=== PATIENT | female | born 1970 ===

== ENCOUNTER 2024-04-24 13:08 | Outpatient (REF) | payer MEDICARE, SELFPAY ==
[2024-04-24 21:23] LABS: HGB 13.6 g/dL (11.2-15.7); MCH 30.5 pg (27.0-33.0); MCHC 33.2 % (32.0-36.0); MCV 92 fL (80-95); MPV 9.4 fL (8.0-11.0); Platelet Count 285 10^3/uL (130-400); RBC 4.46 10^6/uL (3.93-5.22); RDW-SD 43.7 fL; WBC 7.57 10^3/uL (4.4-10.8)
[2024-04-24 21:46] LABS: Iron 62 ug/dL (50-170); Total Iron Binding Capacity 339 ug/dL (250-450); Transferrin Sat 18 % (15-50)
[2024-04-24 22:28] LABS: ALT 53 U/L (14-59); Albumin 4.2 g/dL (3.4-5.0); Alkaline Phosphatase 98 U/L (46-116); Anion Gap 10.9 mmol/L (3-11); BUN 15 mg/dL (7-18); Bilirubin, Total 0.29 mg/dL (0.2-1.0); CO2 27.1 mmol/L (21.0-32.0); Chloride 103 mmol/L (98-107); Cholesterol 255 mg/dL (<200); Estimated GFR 66.95 (mL/min/1.73m2); Ferritin 63 ng/mL (8-252); Glucose 112 mg/dL (74-106); HDL Cholesterol 50 mg/dL (40-60); Potassium 4.2 mmol/L (3.5-5.1); Sodium 141 mmol/L (136-145); TSH (W/Ref FT4) 5.21 uIU/mL (0.36-3.74); Total Protein 7.1 g/dL (6.4-8.2); Triglyceride 509 mg/dL (<150)
[2024-04-24 23:29] LABS: FREE T4 0.93 ng/dL (0.76-1.46)
[2024-04-24 23:34] LABS: AST 22 U/L (15-37)
[2024-04-24 23:52] LABS: LDL CHOLESTEROL 157 mg/dL (<100)
== END 2024-04-24 13:09 | disposition home or self-care (01) ==
LOC: NCHCN 13:08
PROVIDERS: PCP Nurse Practitioner Family; Visit Provider Nurse Practitioner Family
DX: E03.9 Hypothyroidism, unspecified (principal); G25.81 Restless legs syndrome
CPT/HCPCS: 80053; 80061; 83721; 85027; 82728; 83540; 83550; 84439; 84443

== ENCOUNTER 2024-05-02 00:33 | Outpatient (CLI) | payer MEDICARE, SELFPAY ==
--- NOTE | 2024-05-02 | DI.MAMMO_ITS ---
Exam(s) MAMMO SCREENING EXAM: MAMMO SCREENING CLINICAL HISTORY: SCREENING, Z12.31 TECHNIQUE: Bilateral full field digital CC and MLO mammographic images were obtained with 3D tomosyn thesis and utilizing computer aided detection (CAD). COMPARISON: No priors for comparison. FINDINGS: Masses/Architectural Distortion: There is a partially obscured 6 mm nodule in the outer right breast seen on the craniocaudad view. There are no areas of architectural distortion. Microcalcifications: No suspicious pleomorphic-type are seen. Skin Thickening/Nipple Retraction: None. IMPRESSION: 1. 6 mm nodule in the outer right breast on the CC view. 2. This area should be further evaluated with a spot compression view. Limited right breast ultrasou nd may also be indicated at that time. BI-RADS Category 0 - Incomplete: Need additional imaging evaluation Breast Density - Category B - Scattered areas of fibroglandular density Breast density category C or D implies that the patient has dense breast tissue. Dense breast tissue is very common and is not abnormal but dense breast tissue can make it harder to find cancer on a ma mmogram. Also, dense breast tissue may increase their breast cancer risk. This information about the result of the mammogram report was provided to the patient to raise their awareness. Use this report when you speak with the patient about their risks for breast cancer, which includes their family hist ory. At that time, you may recommend for more screening tests (Ultrasound or MRI) as they might be us eful based on their risk. A negative radiographic report should not delay biopsy if a dominant or clinically suspicious mass is present. Up to ten percent of cancers are not identified on mammography. A negative report may reinforce clinical impression. Adenosis and dense breasts may obscure an underlying neoplasm. False positive reports average 6 to 10%. Patient will receive a letter notifying them of these results.
== END 2024-05-02 00:53 ==
PROVIDERS: PCP Nurse Practitioner Family; Visit Provider Nurse Practitioner Family
DX: Z12.31 Encounter for screening mammogram for malignant neoplasm of breast (principal)
CPT/HCPCS: 77063; 77067

== ENCOUNTER 2024-05-13 01:13 | Outpatient (CLI) | payer MEDICARE, SELFPAY ==
--- NOTE | 2024-05-13 14:26 | DI.US_ITS ---
Exam(s) MG MAMMO SCREEN CALL BACK UNI US BREAST RT LIMITED EXAM: MG MAMMO SCREEN CALL BACK UNI CLINICAL HISTORY: 6 mm nodule in outer rt breast on CC view. TECHNIQUE: Craniocaudal and mediolateral oblique spot compression digital Mammography views of the r ightbreast with Tomosynthesis and right breast ultrasound. COMPARISON: MG DIGITAL SCREENING MAMMOGRAPHY from 02/20/2019 MG MG MAMMO SCREEN BILAT W/ ABHINAV from 03/03/2021 MG MG MAMMO SCREEN BILAT W/ ABHINAV from 03/03/2021 MG MG MAMMO SCREEN BILAT W/ ABHINAV from 12/14/2022 MG MG MAMMO SCREEN BILAT W/ ABHINAV from 12/14/2022 MG MG MAMMO SCREENING from 05/02/2024 FINDINGS: Mammography/Tomosynthesis: Masses: None seen. Decreased prominence area of nodularity questioned in the lateral breast. Architectural Distortion: None seen. Microcalcifictions: No suspicious pleomorphic-type are seen. Skin Thickening/Nipple Retraction: None. Right breast US: Echotexture: Normal appearance of the glandular tissue. Shadowing: No suspicious foci. Cyst: None. Solid lesions: None seen. Ductal dilation: None. IMPRESSION: 1. No evidence of malignancy is noted. 2. Unless there is more urgent need, follow-up screening mammography is recommended, as per [employer] guidelines. 3. The findings were discussed with the patient on the date of the examination. BI-RADS Category 1 - Negative Breast Density - Category B - Scattered areas of fibroglandular density A negative radiographic report should not delay biopsy if a dominant or clinically suspicious mass is present. Up to ten percent of cancers are not identified on mammography. A negative report may reinforce clinical impression. Adenosis and dense breasts may obscure an underlying neoplasm. False positive reports average 6 to 10%. Patient will receive a letter notifying them of these results.
== END 2024-05-13 01:33 ==
LOC: DI 01:13
PROVIDERS: PCP Nurse Practitioner Family; Visit Provider Nurse Practitioner Family
DX: R92.8 Other abnormal and inconclusive findings on diagnostic imaging of breast (principal); Z12.31 Encounter for screening mammogram for malignant neoplasm of breast
CPT/HCPCS: 76642; 77063; 77067

== ENCOUNTER 2024-06-20 11:18 | Outpatient (CLI) | payer MEDICARE, SELFPAY ==
--- NOTE | 2024-06-20 11:15 | RT.EKG_ITS ---
APPROVED REPORT Exam: Resting ECG Reason for Exam: baseline Patient Location: O HR:73 bpm ECG Measurements Heart Rate 73 AXIS ME 142 P 42 QRSd 100 QRS -11 QT 387 T 5 QTc 427 Conclusion Sinus rhythm...normal P axis, V-rate 50- 99 Low voltage, precordial leads...precordial leads <1.0mV Late transition
== END 2024-06-20 11:19 | disposition home or self-care (01) ==
LOC: DI.CARD 11:19
PROVIDERS: PCP Nurse Practitioner Family; Referring Provider Nurse Practitioner Family; Visit Provider Internal Medicine Cardiovascular Disease
DX: I51.81 Takotsubo syndrome (principal)
CPT/HCPCS: 93010

== ENCOUNTER → 2024-06-20 11:18 | Outpatient (BNVA) | payer MEDICARE, SELFPAY | PROVIDERS: PCP Nurse Practitioner Family; Referring Provider Nurse Practitioner Family; Visit Provider Internal Medicine Cardiovascular Disease | DX: I51.81 Takotsubo syndrome (principal) | CPT/HCPCS: 93005; 99203 ==

== ENCOUNTER 2024-07-24 16:06 | Outpatient (REF) | payer MEDICARE, SELFPAY ==
--- NOTE | 2024-07-24 08:05 | PAPFT_PTH ---
PATIENT: Umehs Stern LOC: [facility] U#:[id number] AGE/SX: 54/F ROOM: RE07/24/[address]: Ann Marie Spencer : 1970 BED: DIS: 07/24/2024 SPEC #: [id number] RECD: 07/24/24 18:01 STATUS: LUCIA REAlvina #: [id number] KENTRELL: 07/24/24 08:[address]: Ann Marie Spencer DEPT: [facility] Cytology RECD BY: Miriam Varma Tissues: 1 - CX/ENDOCX FOR PAP SMEARS Procedures: PAP THIN PREP/[facility] Screening HPV DNA PROBE Comments: [id number] (HPV 16 & 18/45)
== END 2024-07-24 16:07 | disposition home or self-care (01) ==
LOC: NCHCN 16:06
PROVIDERS: PCP Nurse Practitioner Family; Visit Provider Nurse Practitioner Family
DX: Z11.51 Encounter for screening for human papillomavirus (HPV) (principal); Z01.419 Encounter for gynecological examination (general) (routine) without abnormal findings
CPT/HCPCS: 88142; 87624

== ENCOUNTER 2025-01-22 09:14 | Outpatient (REF) | payer MEDICARE, SELFPAY ==
[2025-01-22 15:27] LABS: HCT 42.6 % (36.0-46.0); MCH 29.5 pg (27.0-33.0); MCHC 32.9 % (32.0-36.0); MCV 90 fL (80-95); MPV 9.1 fL (8.0-11.0); Platelet Count 292 10^3/uL (130-400); RBC 4.75 10^6/uL (3.93-5.22); RDW-SD 42.5 fL; WBC 6.29 10^3/uL (4.4-10.8)
[2025-01-22 16:28] LABS: ALT 40 U/L (14-59); AST 25 U/L (15-37); Albumin 4.6 g/dL (3.4-5.0); Alkaline Phosphatase 113 U/L (46-116); Anion Gap 6.6 mmol/L (3-11); BUN 7 mg/dL (7-18); Bilirubin, Total 0.4 mg/dL (0.2-1.0); CO2 30.4 mmol/L (21.0-32.0); CREATININE 0.9 mg/dL (0.55-1.02); Calcium 9.9 mg/dL (8.5-10.1); Calculated LDL 142 mg/dL (<100); Chloride 106 mmol/L (98-107); Cholesterol 230 mg/dL (<200); Ferritin 83 ng/mL (8-252); Glucose 105 mg/dL (74-106); HDL Cholesterol 60 mg/dL (>or=50); Potassium 4.6 mmol/L (3.5-5.1); Sodium 143 mmol/L (136-145); TSH (W/Ref FT4) 3.62 uIU/mL (0.36-3.74); Total Protein 7.7 g/dL (6.4-8.2); Triglyceride 144 mg/dL (<150)
[2025-01-22 16:54] LABS: Iron 81 ug/dL (50-170); Total Iron Binding Capacity 356 ug/dL (250-450); Transferrin Sat 23 % (15-50)
[2025-01-23 10:09] LABS: DHEA Sulfate 172 ug/dL (30-182)
[2025-01-28 12:33] LABS: Testosterone, Total 31 ng/dL (8-60)
== END 2025-01-22 09:15 | disposition home or self-care (01) ==
LOC: NCHCN 09:14
PROVIDERS: PCP Nurse Practitioner Family; Visit Provider Nurse Practitioner Family
DX: E03.9 Hypothyroidism, unspecified (principal); L65.9 Nonscarring hair loss, unspecified; E78.2 Mixed hyperlipidemia
CPT/HCPCS: 80053; 80061; 82627; 84403; 85027; 82728; 83540; 83550; 84443

== ENCOUNTER 2025-01-28 00:32 | Outpatient (CLI) | payer MEDICARE, SELFPAY ==
--- NOTE | 2025-01-28 | DI.RAD_ITS ---
Exam(s) XR LUMBAR SPINE COMPLETE EXAM: XR LUMBAR SPINE COMPLETE CLINICAL HISTORY: Acute midline T-spine pain, M54.6, x-ray thoracic and lumbar spine d/t. TECHNIQUE: 2D digital imaging was performed. COMPARISON: No exams were available for comparison FINDINGS: Five views No evidence of fracture, listhesis, nor pars interarticularis defects. No scoliosis. Bone density n ormal. Sacroiliac joints appear un remarkable. There is no obvious disc space narrowing although there is some anterior osseous lipping at a few lev els which may indicate some degenerative disc disease despite preserved disc height. Facet joints ap pear unremarkable with some degenerative change at the facets joints of the lower most level. Sacroi liac joints appear unremarkable. IMPRESSION: Some facet arthropathy in the lower lumbar spine. Otherwise no significant osseous or radiographic f indings. DATA REPOSITORY: RADIATION DOSE DELIVERED:
--- NOTE | 2025-01-28 | DI.RAD_ITS ---
Exam(s) XR THORACIC SPINE COMPLETE EXAM: XR THORACIC SPINE COMPLETE CLINICAL HISTORY: Acute midline thoracic back pain, M54.6. TECHNIQUE: 2D digital imaging was performed. COMPARISON: No exams were available for comparison FINDINGS: 3 views There is no evidence of fracture, listhesis, nor abnormal widening of the paraspinal lines. Disc spa rishi appear relatively unremarkable with some mild narrowing at the T9-T10 level. There is no thoraci c scoliosis. Bone density normal. No osseous lesions evident. IMPRESSION: Minimal findings as above. DATA REPOSITORY: RADIATION DOSE DELIVERED:
== END 2025-01-28 00:52 ==
LOC: DI 00:32
PROVIDERS: PCP Nurse Practitioner Family; Visit Provider Nurse Practitioner Family
DX: M54.6 Pain in thoracic spine (principal)
CPT/HCPCS: 72072; 72110

== ENCOUNTER 2025-08-25 09:28 | Outpatient (CLI) | payer MEDICARE, SELFPAY ==
[2025-08-25 10:16] LABS: TSH 2.94 uIU/mL (0.55-4.78)
== END 2025-08-25 09:29 | disposition home or self-care (01) ==
LOC: LBO 09:31
PROVIDERS: PCP Nurse Practitioner Family; Visit Provider Nurse Practitioner Family
DX: E03.9 Hypothyroidism, unspecified (principal)
CPT/HCPCS: 36415; 84443